=== PATIENT | male | born 1950 ===

== ENCOUNTER 2016-08-08 03:05 | Emergency (ER) | payer OTHER ==
[2016-08-08 03:18] VITALS: BP 146/81; PULSE 62; RESP 14; TEMP 99; O2SAT 100
--- NOTE | 2016-08-08 03:48 | ED PDOC ---
HPI: Wound Care - HPI Time Seen by Provider: 08/08/16 03:13 Chief Complaint (Nursing): Suture/Staple Removal Chief Complaint (Provider): suture removal History Per: Patient History Of Present Illness: 65 y/o male presents for suture removal from left wrist laceration sustained 2 weeks ago, sutured at [facility]. Patient finished antibiotic as directed. Denies wrist pain, numbness/weakness left upper extremity, limitation of movement. Past Medical History Reviewed: Historical Data, Nursing Documentation, Vital Signs Vital Signs: Last Vital Signs Temp 99 F 08/08/16 03:14 Pulse 62 08/08/16 03:14 Resp 14 08/08/16 03:14 BP 146/81 08/08/16 03:14 Pulse Ox 100 08/08/16 03:14 - Medical History PMH: No Chronic Diseases - Surgical History Surgical History: No Surg Hx - Family History Family History: States: Unknown Family Hx - Allergies Allergies/Adverse Reactions: Allergies Allergy/AdvReac Type Severity Reaction Status Date / Time No Known Allergies Allergy Verified 08/08/16 03:14 Review of Systems ROS Statement: Except As Marked, All Systems Reviewed And Found Negative Physical Exam - Reviewed Nursing Documentation Reviewed: Yes Vital Signs Reviewed: Yes - Physical Exam Appears: Positive for: Well, Non-toxic, No Acute Distress Extremity: Positive for: Normal ROM, Other ([address] volar left wrist[address] No surrounding swelling, erythema, tenderness noted. Distal NV, motor intact) - ECG O2 Sat by Pulse Oximetry: 100 - Progress ED Course And Treament: 4 sutures removed, bacitracin applied, bandaged. Patient educated on wound care, follow up PMD 2-3 days. Return to ED for worsening/concerning symptoms. Disposition - Clinical Impression Clinical Impression: Removal of suture Counseled Patient/Family Regarding: Diagnosis, Need For Followup - Disposition Referrals: Nellie Breaux [Primary Care Provider] - Disposition: Routine/Home Disposition Time: 03:54 Condition: GOOD Instructions: Stitches Removal (ED) Print Language: [place]
== END 2016-08-08 03:58 | disposition home or self-care (01) ==
LOC: H.ER 03:05
DX: Z48.02 Encounter for removal of sutures (principal)